=== PATIENT | female | born 1945 | race African-American/Black ===

== ENCOUNTER 2018-07-25 10:09 | Inpatient (IN) | payer MEDICARE ==
[~2018-07-25] VITALS: Ht 160 cm; Wt 105.4 kg
[2018-07-25] MEDS ORDERED: ATEN25TA PO (10:40)
[2018-07-25] MEDS ORDERED: OMEP40CA2 PO (10:40)
[2018-07-25] MEDS ORDERED: VITA200038 PO (10:40)
[2018-07-25] MEDS ORDERED: PRAV40TA2 PO (10:40)
[2018-07-25] MEDS ORDERED: HYDR12.55 PO (10:40)
[2018-07-25] MEDS ORDERED: LOSA-4 PO (10:40)
[2018-07-25] MEDS ORDERED: LABETALOL 100 MG TAB PO ONE (11:00)
--- NOTE | 2018-07-25 11:03 | REP ---
Clinical: Confusion . Findings: Age-related atrophy and microvascular ischemic changes are appreciated. The ventricles and sulci are symmetric. Mack-white differentiation is maintained. There is no evidence for acute intracranial hemorrhage, mass/mass effect, pathology or infarction. No extra-axial fluid collection. Calvarium is intact. Paranasal sinuses and mastoid air cells are clear. Impression: Age related atrophy and microvascular ischemic changes. No acute intracranial hemorrhage, infarction, or mass/mass effect. Electronically Signed by Mina Escudero MD 07/25/2018 10:54 A
[2018-07-25] MEDS: LABETALOL HCL 100 MG/20 ML VIAL IV PRN ×5 (11:09→12:15)
[2018-07-25 11:35] LABS: BASO # 0.1 10^3/uL (0.0-0.2); BASO % 0.9 % (0.0-1.0); EOS # 0.1 10^3/uL (0.0-0.50); EOS % 0.9 % (0.0-3.0); HEMATOCRIT 42.2 % (36.0-47.0); HEMOGLOBIN 13.7 g/dl (12.0-15.5); LYMPH # 2.4 10^3/uL (1.5-4.5); LYMPH % 29.8 % (24.0-44.0); MEAN CORPUSCULAR HGB CONC 32.5 g/dl (32.0-36.5); MEAN CORPUSCULAR VOLUME 89.2 fl (80.0-96.0); MONO # 0.4 10^3/uL (0.0-0.8); MONO % 5.4 % (0.0-5.0); NEUTROPHILS # 4.8 10^3/uL (1.8-7.7); NEUTROPHILS % 61.4 % (36.0-66.0); PLATELET COUNT, AUTOMATED 166 10^3/uL (150-450); RED BLOOD COUNT 4.73 10^6/uL (4.00-5.40); WHITE BLOOD COUNT 7.9 10^3/uL (4.0-10.0)
[2018-07-25] MEDS ORDERED: ONDANSETRON 4MG/2ML VIAL (J2405) IV ONE (11:45)
[2018-07-25 11:47] LABS: INR 0.95; PROTHROMBIN TIME 12.7 SECONDS (12.1-14.4)
[2018-07-25 11:48] LABS: PARTIAL THROMBOPLASTIN TIME 36.3 SECONDS (25.4-37.6)
--- NOTE | 2018-07-25 12:07 | REP ---
Clinical: Altered mental status . Comparison: None . Findings: The mediastinum and cardiac silhouette are stable and within normal limits for portable technique. The lung willoughby are clear without acute consolidation, effusion, or pneumothorax. Skeletal structures are intact. Impression: No acute cardiopulmonary process appreciated. Electronically Signed by Mina Escudero MD 07/25/2018 11:59 A
[2018-07-25 13:01] LABS: BLOOD UREA NITROGEN 19 MG/DL (7-18); CALCIUM LEVEL 9.4 MG/DL (8.8-10.2); CARBON DIOXIDE LEVEL 27 MEQ/L (21-32); CHLORIDE LEVEL 103 MEQ/L (98-107); CPK CREATINE PHOSPHOKINASE 102 U/L (26-192); CREATININE FOR GFR 1.03 MG/DL (0.55-1.30); GLOMERULAR FILTRATION RATE > 60.0 (>39); GLUCOSE, FASTING 123 MG/DL (70-100); MB/CK RELATIVE INDEX 1.96 (< OR =4); SODIUM LEVEL 138 MEQ/L (136-145); TROPONIN I < 0.02 NG/ML (< 0.10)
[2018-07-25] MEDS ORDERED: HYDR50TAB PO (14:34)
[2018-07-25] MEDS ORDERED: OMEP20CA3 PO (14:34)
[2018-07-25] MEDS ORDERED: ACETAMINOPHEN TAB 650MG DOSE (2X325MG) PO ONE (14:45)
[2018-07-25] MEDS ORDERED: hydrALAZINE INJ 20 MG/ML VIAL IV SCH (15:30)
[2018-07-25 15:49] LABS: BASO # 0.1 10^3/uL (0.0-0.2); BASO % 0.6 % (0.0-1.0); HEMATOCRIT 42.5 % (36.0-47.0); HEMOGLOBIN 13.9 g/dl (12.0-15.5); LYMPH # 1.7 10^3/uL (1.5-4.5); LYMPH % 16.3 % (24.0-44.0); MEAN CORPUSCULAR HEMOGLOBIN 28.8 pg (27.0-33.0); MEAN CORPUSCULAR HGB CONC 32.7 g/dl (32.0-36.5); MONO # 0.3 10^3/uL (0.0-0.8); MONO % 3.2 % (0.0-5.0); NEUTROPHILS # 7.9 10^3/uL (1.8-7.7); NEUTROPHILS % 77.9 % (36.0-66.0); PLATELET COUNT, AUTOMATED 174 10^3/uL (150-450); RED BLOOD COUNT 4.83 10^6/uL (4.00-5.40); WHITE BLOOD COUNT 10.2 10^3/uL (4.0-10.0)
[2018-07-25 16:15] LABS: BLOOD UREA NITROGEN 16 MG/DL (7-18); CALCIUM LEVEL 9.3 MG/DL (8.8-10.2); CARBON DIOXIDE LEVEL 27 MEQ/L (21-32); CHLORIDE LEVEL 101 MEQ/L (98-107); CREATININE FOR GFR 1.05 MG/DL (0.55-1.30); GLOMERULAR FILTRATION RATE > 60.0 (>39); GLUCOSE, FASTING 118 MG/DL (70-100); POTASSIUM SERUM 4.1 MEQ/L (3.5-5.1); SODIUM LEVEL 137 MEQ/L (136-145)
--- NOTE | 2018-07-25 17:29 | ECGEPIP ---
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
[2018-07-25 17:45] VITALS: BP 188/82
[2018-07-25 18:00] VITALS: BP 186/81
[2018-07-25 19:40] VITALS: BP 198/90
[2018-07-25] MEDS: MORPHINE 4 MG/ML 1ML VIAL/SYRINGE (J2270) IV PRN (19:44)
[2018-07-25 20:00] VITALS: BP 164/70
[2018-07-25 20:42] VITALS: BP 150/65
--- NOTE | 2018-07-25 22:04 | HPE ---
DATE OF ADMISSION: 07/25/2018 This is a 73-year-old female with a past medical history of hypertension and hyperlipidemia and morbid obesity, presents to the emergency room with intractable headache. She has been having this for the last couple of days. No visual disturbances or tinnitus. No nausea or vomiting. She does have generalized weakness as well associated with the headache. Upon coming to the emergency room, she was found have a blood pressure initially of 250/112. She was given a total of two 40 mg of labetalol IV and then four 20 mg of labetalol and her blood pressure is now 186/90. Upon further history taking, we found out that the patient has been sporadically taking her blood pressure medications. When I asked her why, she could not answer. She denies any chest pain or shortness of breath or palpitations. She will be admitted for further management. PAST MEDICAL HISTORY: 1. Hypertension. 2. Hyperlipidemia. 3. Morbid obesity. ALLERGIES: She has no known drug allergies. FAMILY HISTORY: Noncontributory. SOCIAL HISTORY: The patient denies tobacco, alcohol or illicit drugs. MEDICATIONS: She takes at home: - atenolol 25 mg by mouth daily - cholecalciferol 2000 units by mouth daily - hydrochlorothiazide 50 mg by mouth daily - losartan 100 mg by mouth daily - omeprazole 20 mg by mouth daily - pravastatin 40 mg by mouth daily REVIEW OF SYSTEMS: Negative for all ten major systems except what is mentioned in the history of present illness. PHYSICAL EXAMINATION: VITAL SIGNS: Blood pressure 186/90, heart rate 75 and regular, respiratory rate is 22, temperature is 98, oxygen saturation 98% on room air. Head is atraumatic, normocephalic. Neck is supple with no jugular venous distention (JVD). Lungs clear to auscultation. S1, S2 audible. No murmurs appreciated. Abdomen is soft. Positive bowel sounds. No pedal edema. Skin is intact. Neurologic examination, the patient is awake, alert and oriented times three. LABORATORIES: WBC is 7.9, hemoglobin is 13.7, hematocrit is 42.2, platelets are 168,000. Sodium 138, potassium 4.0, chloride 103, CO2 of 27, anion gap 8, BUN 19, creatinine 1.03, TSH is 1.8, troponin less than 0.02, fasting glucose 123. CK is 102. UA is negative. IMPRESSION: Hypertensive urgency. PLAN: The patient is to be admitted to the progressive care unit (PCU). This is clearly secondary to noncompliance. I will restart all of her blood pressure medications as prescribed and in the meantime we will keep her blood pressure controlled while her home blood pressure medications take effect with hydralazine 10 mg IV every 6 hours as needed. We will continue following her blood pressure trends and her care in the progressive care unit (PCU).
[2018-07-25 22:33] VITALS: BP 143/67
[2018-07-26] VITALS (9 sets, daily range): BP systolic 110–200; BP diastolic 53–100
[2018-07-26] MEDS ORDERED: ACETAMINOPHEN TAB 650MG DOSE (2X325MG) PO ONE (02:45)
[2018-07-26] MEDS: MORPHINE 4 MG/ML 1ML VIAL/SYRINGE (J2270) IV PRN (05:39)
[2018-07-26 06:48] LABS: HEMATOCRIT 39.3 % (36.0-47.0); HEMOGLOBIN 12.9 g/dl (12.0-15.5); MEAN CORPUSCULAR HEMOGLOBIN 28.6 pg (27.0-33.0); MEAN CORPUSCULAR HGB CONC 32.8 g/dl (32.0-36.5); MEAN CORPUSCULAR VOLUME 87.1 fl (80.0-96.0); PLATELET COUNT, AUTOMATED 170 10^3/uL (150-450); RED BLOOD COUNT 4.51 10^6/uL (4.00-5.40); WHITE BLOOD COUNT 11.7 10^3/uL (4.0-10.0)
[2018-07-26 07:27] LABS: ALBUMIN 3.2 GM/DL (3.2-5.2); ALT/SGPT 13 U/L (12-78); BILIRUBIN,TOTAL 0.8 MG/DL (0.2-1.0); BLOOD UREA NITROGEN 22 MG/DL (7-18); CALCIUM LEVEL 8.8 MG/DL (8.8-10.2); CARBON DIOXIDE LEVEL 26 MEQ/L (21-32); CHLORIDE LEVEL 99 MEQ/L (98-107); CREATININE FOR GFR 1.24 MG/DL (0.55-1.30); GLOMERULAR FILTRATION RATE 54.5 (>39); GLUCOSE, FASTING 99 MG/DL (70-100); POTASSIUM SERUM 3.4 MEQ/L (3.5-5.1); SODIUM LEVEL 135 MEQ/L (136-145); TOTAL PROTEIN 7.2 GM/DL (6.4-8.2); TROPONIN I < 0.02 NG/ML (< 0.10)
[2018-07-26] MEDS: OMEPRAZOLE 20 MG CAP PO SCH (08:33)
[2018-07-26] MEDS: VITAMIN D 1,000 INTERNATIONAL UNITS TABLET PO SCH (08:33)
[2018-07-26] MEDS: PRAVASTATIN 20 MG TAB PO SCH (08:34)
[2018-07-26] MEDS ORDERED: LOSARTAN 50 MG TAB PO SCH (09:00)
[2018-07-26] MEDS ORDERED: hydroCHLOROthiazide 25 MG TAB PO SCH (09:00)
[2018-07-26] MEDS ORDERED: ATENOLOL 25 MG TAB PO SCH (09:00)
[2018-07-26] MEDS: ACETAMINOPHEN TAB 650MG DOSE (2X325MG) PO PRN ×2 (13:00→22:29)
[2018-07-26] MEDS: IBUPROFEN 400 MG TAB PO PRN (14:46)
--- NOTE | 2018-07-26 15:24 | IPN ---
DATE: 07/26/2018 SUBJECTIVE: The patient tells me that she is doing so much better. Her blurry vision is improving but not resolved. Her headache is improved but not resolved. She denies fevers, chills, chest pain or shortness of breath. OBJECTIVE: VITAL SIGNS: Temperature 98.7, pulse 75, respiratory rate 18, blood pressure 127/60, oxygen saturation 97% on room air. GENERAL: She is a very pleasant, female who sits up to greet me as I enter the room. She is awake, alert, oriented times three. She is speaking in complete sentences. She does not appear to be in any acute distress. HEENT: Cranial nerves II-XII are grossly intact. She has moist mucous membranes. No elevation in her central venous pressure (CVP). CARDIOVASCULAR: S1, S2, regular RESPIRATORY: Clear. ABDOMINAL: Obese. EXTREMITIES: No clubbing, cyanosis, or edema. LABORATORY STUDIES: WBC 11.7, hemoglobin 12.9, platelet count 170. Chemistry panel: Sodium 135, potassium 3.4, chloride 99, bicarbonate 26, BUN 22, creatinine 1.2. Two sets of cardiac enzymes are negative. TSH was within normal limits. INR is 0.9 and urinalysis (UA) is unremarkable. IMAGING: The patient did have a CT scan of her head that revealed age-related atrophy and microvascular ischemic changes. No acute intracranial hemorrhage, infarction, mass or mass effect. She also did have a chest x-ray which revealed no acute cardiopulmonary process. ASSESSMENT AND PLAN: This is a 69-year-old female who presented with headache and blurry vision found to be in hypertensive urgency. 1. Hypertensive urgency, likely the etiology for her headache and blurry vision. She tells me that she knows that she gets this way whenever she stops taking her medications and when her blood pressure is high. I asked her why she stopped taking her medications. She does have them. She recently moved here from [place] and is set to establish with Yanet Sen within the next 2-3 weeks. However, she felt as though her medications were making her somewhat lethargic and fatigued and, as such, wanted to see how she did without them. She regrets stopping them and informed me that she will be more compliant with them in the future and is now aware that she really needs her medications. We have resumed her previous medications, hydrochlorothiazide and atenolol, 50 mg and 25 mg, respectively, she should receive those this morning. I have moved her losartan to this evening. There is as needed hydralazine on standby which I am optimistic we will not require any further. She has fairly resistant hypertension requiring three agents. Given her advanced age and her obesity, she may have undiagnosed obstructive sleep apnea and could consider outpatient testing versus other evaluations for secondary causes of hypertension. I suspect that she is acutely worse than she has been lately following the holidays and dietary noncompliance with low sodium diet. 2. Hypokalemia, mild. We are restarting her ARB. Followup recheck tomorrow morning. 3. Gastroesophageal reflux disease. She is continued on omeprazole. DISPOSITION: Stable for transfer to medical/surgical floor. Potentially home tomorrow if her symptoms continue to resolve and her blood pressure is controlled on her home agents.
[2018-07-26] MEDS ORDERED: FIORICET TAB PO ONE (17:00)
[2018-07-26] MEDS: FIORICET TAB PO PRN (20:53)
[2018-07-26] MEDS: LOSARTAN 50 MG TAB PO SCH (20:54)
[2018-07-26] MEDS: hydrALAZINE INJ 20 MG/ML VIAL IV PRN (21:40)
[2018-07-26] MEDS ORDERED: **hydrALAZINE** 10 MG TAB PO ONE (23:45)
[2018-07-27] VITALS (15 sets, daily range): BP systolic 130–214; BP diastolic 76–112
[2018-07-27] MEDS: IBUPROFEN 400 MG TAB PO PRN (00:15)
[2018-07-27 00:46] LABS: HEMATOCRIT 43.5 % (36.0-47.0); HEMOGLOBIN 14.4 g/dl (12.0-15.5); MEAN CORPUSCULAR HEMOGLOBIN 29.1 pg (27.0-33.0); MEAN CORPUSCULAR HGB CONC 33.1 g/dl (32.0-36.5); MEAN CORPUSCULAR VOLUME 87.9 fl (80.0-96.0); PLATELET COUNT, AUTOMATED 164 10^3/uL (150-450); RED BLOOD COUNT 4.95 10^6/uL (4.00-5.40); WHITE BLOOD COUNT 9.4 10^3/uL (4.0-10.0)
--- NOTE | 2018-07-27 01:21 | REPVR ---
EXAM: CT Head Without Contrast EXAM DATE/TIME: 07/27/18 (12:46am) CLINICAL HISTORY: 73 year old female with headache. Hypertension. Altered mental status. TECHNIQUE: Axial computed tomography images of the head without contrast. All CT scans at this facility use at least one of these dose optimization techniques: automated exposure control; mA and/or kV adjustment per patient size (includes targeted exams where dose is matched to clinical indication); or iterative reconstruction. COMPARISON: CT HEAD of 07/25/18 FINDINGS: Brain: No acute hemorrhage. No cerebral edema. Age-appropriate atrophic changes are noted. Periventricular and subcortical areas of low attenuation, compatible with small vessel microischemic changes. Ventricles: Normal. No ventriculomegaly. Bones/joints: Normal. No acute fracture. Sinuses: Normal as visualized. No acute sinusitis. Mastoid air cells: Normal as visualized. No mastoid effusion. Soft tissues: Normal. IMPRESSION: No acute intracranial pathology is appreciated. Chronic atrophic and microischemic changes are noted. Electronically signed by: Elba Milligan On 07/27/2018 01:21:31 AM
[2018-07-27 01:24] LABS: CALCIUM LEVEL 9.3 MG/DL (8.8-10.2); CREATININE FOR GFR 1.21 MG/DL (0.55-1.30); GLOMERULAR FILTRATION RATE 56.1 (>39); POTASSIUM SERUM 3.7 MEQ/L (3.5-5.1)
[2018-07-27] MEDS ORDERED: amLODIPine 10 MG TAB PO ONE (02:00)
[2018-07-27] MEDS ORDERED: KETOROLAC 30 MG/ML VIAL (J1885) IV ONE (02:30)
[2018-07-27] MEDS ORDERED: niCARdipine IV 40 MG in APPROPRIATE DILUENT 1 EA IV SCH ×2 (03:30→04:15)
[2018-07-27] MEDS ORDERED: MORPHINE 4 MG/ML 1ML VIAL/SYRINGE (J2270) IV ONE (04:00)
[2018-07-27] MEDS: FIORICET TAB PO PRN ×3 (05:41→22:01)
[2018-07-27 05:56] LABS: HEMATOCRIT 41.6 % (36.0-47.0); HEMOGLOBIN 13.9 g/dl (12.0-15.5); MEAN CORPUSCULAR HEMOGLOBIN 28.5 pg (27.0-33.0); MEAN CORPUSCULAR HGB CONC 33.4 g/dl (32.0-36.5); MEAN CORPUSCULAR VOLUME 85.2 fl (80.0-96.0); PLATELET COUNT, AUTOMATED 171 10^3/uL (150-450); RED BLOOD COUNT 4.88 10^6/uL (4.00-5.40); WHITE BLOOD COUNT 10.1 10^3/uL (4.0-10.0)
[2018-07-27 06:24] LABS: BLOOD UREA NITROGEN 21 MG/DL (7-18); CALCIUM LEVEL 9.2 MG/DL (8.8-10.2); CARBON DIOXIDE LEVEL 28 MEQ/L (21-32); CHLORIDE LEVEL 94 MEQ/L (98-107); GLOMERULAR FILTRATION RATE > 60.0 (>39); GLUCOSE, FASTING 111 MG/DL (70-100); POTASSIUM SERUM 3.8 MEQ/L (3.5-5.1); SODIUM LEVEL 130 MEQ/L (136-145)
[2018-07-27] MEDS ORDERED: hydrALAZINE INJ 20 MG/ML VIAL IV PRN (06:45)
[2018-07-27] MEDS: hydrALAZINE INJ 20 MG/ML VIAL IV PRN (06:54)
[2018-07-27] MEDS ORDERED: SLF 3 ML SYR IV PRN (09:45)
[2018-07-27] MEDS: PRAVASTATIN 20 MG TAB PO SCH (09:47)
[2018-07-27] MEDS: CARVedilol 12.5 MG TAB PO SCH ×2 (09:48→21:59)
[2018-07-27] MEDS: OMEPRAZOLE 20 MG CAP PO SCH (09:48)
[2018-07-27] MEDS: ACETAMINOPHEN TAB 650MG DOSE (2X325MG) PO PRN (09:48)
[2018-07-27] MEDS: VITAMIN D 1,000 INTERNATIONAL UNITS TABLET PO SCH (09:48)
[2018-07-27] MEDS ORDERED: EXCEDRIN MIGRAINE TABLET PO ONE (15:00)
--- NOTE | 2018-07-27 15:50 | IPNPDOC ---
Text Note Date of Service The patient was seen on 07/27/18. NOTE Subjective: Patient was seen and examined at the bedside. Reported this morning that her headache is doing better. Denies any chest pain, shortness of breath or cough. Denies any nausea, vomiting, abdominal pain, constipation or diarrhea. Objective: Vitals (See below) General: Lying in bed, no acute distress, comfortable, AAOx3 HEENT: NC, AT CVS: RRR, +S1S2 Lungs: Fair air entry b/l, -w/r/r Abdomen: Soft, ND, NT Extremities: - Edema, - Calf tenderness Assessment and plan: s/p Hypertensive urgency - likely 2/2 non-compliance with medications - Initially presented with Headache and blurred vision; has had fewer headaches - BP better controlled - c/w Carvedilol and Losartan; s/p Hydralazine, Atenolol and HCTZ Hyponatremia (mild) - possibly 2/2 HCTZ - Has been discontinued Non-compliance - Advised compliance - Will follow with Dr. Yanick Sen as an outpatient s/p Hypokalemia DLP - c/w Pravastatin GERD - c/w Omeprazole DVT prophylaxis - c/w SCDs Disposition: - Adjusted BP meds; will continue to monitor VS,Fishbone, I+O VS, Fishbone, I+O Laboratory Tests 07/27/18 00:41 Red Blood Count 4.95, Mean Corpuscular Volume 87.9, Mean Corpuscular Hemoglobin 29.1, Mean Corpuscular Hemoglobin Concent 33.1, Red Cell Distribution Width 15.3 H, Calcium Level 9.3 07/27/18 05:24 Red Blood Count 4.88, Mean Corpuscular Volume 85.2, Mean Corpuscular Hemoglobin 28.5, Mean Corpuscular Hemoglobin Concent 33.4, Red Cell Distribution Width 14.8 H, Calcium Level 9.2 Vital Signs Date Time Temp Pulse Resp B/P (MAP) Pulse Ox O2 Delivery O2 Flow Rate FiO2 07/27/18 12:11 18 96 Room Air 07/27/18 12:00 98.2 71 134/76 (95) I&O- Last 24 Hours up to 6 AM 07/27/18 06:00 Intake Total 480 ml Output Total 1525 ml Balance -1045 ml OSBALDO BOUCHER MD Jul 27, 2018 15:50
[2018-07-27] MEDS: SLF 3 ML SYR IV SCH ×2 (16:24→22:00)
[2018-07-27] MEDS: LOSARTAN 50 MG TAB PO SCH (22:02)
[2018-07-28 00:01] VITALS: BP 130/76
[2018-07-28 04:43] VITALS: BP 132/78
[2018-07-28 05:18] LABS: HEMATOCRIT 40.5 % (36.0-47.0); HEMOGLOBIN 13.7 g/dl (12.0-15.5); MEAN CORPUSCULAR HEMOGLOBIN 28.8 pg (27.0-33.0); MEAN CORPUSCULAR HGB CONC 33.8 g/dl (32.0-36.5); MEAN CORPUSCULAR VOLUME 85.1 fl (80.0-96.0); PLATELET COUNT, AUTOMATED 173 10^3/uL (150-450); RED BLOOD COUNT 4.76 10^6/uL (4.00-5.40); WHITE BLOOD COUNT 10.8 10^3/uL (4.0-10.0)
[2018-07-28 05:43] LABS: CALCIUM LEVEL 8.9 MG/DL (8.8-10.2); CREATININE FOR GFR 1.16 MG/DL (0.55-1.30); GLOMERULAR FILTRATION RATE 58.9 (>39); POTASSIUM SERUM 3.6 MEQ/L (3.5-5.1)
[2018-07-28] MEDS: SLF 3 ML SYR IV SCH ×3 (06:00→22:00)
[2018-07-28 08:00] VITALS: BP 118/64
[2018-07-28] MEDS: PRAVASTATIN 20 MG TAB PO SCH (08:36)
[2018-07-28] MEDS: VITAMIN D 1,000 INTERNATIONAL UNITS TABLET PO SCH (08:37)
[2018-07-28] MEDS: CARVedilol 12.5 MG TAB PO SCH ×2 (08:37→20:46)
[2018-07-28] MEDS: OMEPRAZOLE 20 MG CAP PO SCH (08:37)
[2018-07-28] MEDS: FIORICET TAB PO PRN ×3 (08:45→21:00)
[2018-07-28] MEDS ORDERED: BUTA-198 PO ×2 (11:17→12:33)
[2018-07-28] MEDS ORDERED: CARV12.5 PO ×2 (11:17→12:33)
[2018-07-28 12:00] VITALS: BP 112/68
--- NOTE | 2018-07-28 12:47 | DS.PDOC ---
Discharge Summary General Date of Admission Jul 25, 2018 at 15:19 Date of Discharge 07/28/2018 Discharge Summary PROCEDURES PERFORMED DURING STAY: [None]. ADMITTING DIAGNOSES / DISCHARGE DIAGNOSES: s/p Hypertensive urgency - likely 2/2 non-compliance with medications Headache - possibly 2/2 migraine headaches Hyponatremia (mild) - possibly 2/2 HCTZ Non-compliance s/p Hypokalemia DLP GERD DVT prophylaxis COMPLICATIONS/CHIEF COMPLAINT: Hypertensive Urgency. HISTORY OF PRESENT ILLNESS: Patient is a 73-year-old -[place] female with a PMHx of HTN, DLP and morbid obesity who presented to the ER with complaints of headache and blurred vision. Patient was found to have a systolic blood pressure of 250s. Patient reported that she was noncompliant with her medications because he reportedly made her fatigued. Blood pressure medications were adjusted while inpatient. She was admitted to the hospitalist service for further evaluation and treatment. HOSPITAL COURSE: s/p Hypertensive urgency - likely 2/2 non-compliance with medications - Initially presented with Headache and blurred vision; has had resolution of blurred vision, headaches have improved - BP better controlled - c/w Carvedilol and Losartan; s/p Hydralazine, Atenolol and HCTZ Headache - possibly 2/2 migraine headaches - Reports some improvement - No focal neurologic deficit noted - CT head 07/27: No acute intracranial pathology is appreciated. Chronic atrophic and microischemic changes are noted. - c/w Fioricet - Patient has refused to receive an MRI; advised risks and benefits - patient verbalized understanding; continue to refuse even after offered sedatives - Will provide outpatient referral to neurology Hyponatremia (mild) - possibly 2/2 HCTZ - Has been discontinued Non-compliance - Advised compliance - Will follow with Dr. Yanick Sen as an outpatient s/p Hypokalemia DLP - c/w Pravastatin GERD - c/w Omeprazole DVT prophylaxis - c/w SCDs DISCHARGE MEDICATIONS: Please see below. ALLERGIES: Please see below. PHYSICAL EXAMINATION ON DISCHARGE: Vitals (See below) General: Lying in bed, no acute distress, comfortable, AAOx3 HEENT: NC, AT CVS: RRR, +S1S2 Lungs: Fair air entry b/l, no evidence of wheezing, rhonchi or rales Abdomen: Soft, nondistended, without tenderness Extremities: - Edema, - Calf tenderness LABORATORY DATA: Please see below. ACTIVITY: [As tolerated]. DISCHARGE PLAN: Follow-up with Dr. Yanet Sen, and Dr. Shelton within 7 days Remained compliant with treatment plan and medications Return to the ER if you experience any problems DISPOSITION: Home with services DISCHARGE CONDITION: [Stable]. TIME SPENT ON DISCHARGE: Greater than [35] minutes. Vital Signs/I&Os Vital Signs Date Time Temp Pulse Resp B/P (MAP) Pulse Ox O2 Delivery O2 Flow Rate FiO2 07/28/18 12:00 97.6 63 18 112/68 (83) 100 Room Air I&O- Last 24 Hours up to 6 AM 07/28/18 06:00 Intake Total 1355 ml Output Total 200 ml Balance 1155 ml Laboratory Data Labs 24H Laboratory Tests 2 07/28/18 04:55: Nucleated Red Blood Cells % (auto) 0.0, Anion Gap 7L, Glomerular Filtration Rate 58.9, Blood Urea Nitrogen 21H, Creatinine 1.16, Sodium Level 129L, Potassium Level 3.6, Chloride Level 93L, Carbon Dioxide Level 29, Calcium Level 8.9 CBC/BMP Laboratory Tests 07/28/18 04:55 Red Blood Count 4.76, Mean Corpuscular Volume 85.1, Mean Corpuscular Hemoglobin 28.8, Mean Corpuscular Hemoglobin Concent 33.8, Red Cell Distribution Width 14.5, Calcium Level 8.9 Discharge Medications Scheduled Carvedilol (Carvedilol) 12.5 Mg Tab, 12.5 MG PO BID Cholecalciferol (Vitamin D-3) 2,000 Unit Tab, 2,000 UNITS PO DAILY, (Reported) Losartan Potassium (Losartan Potassium) 100 Mg Tab, 100 MG PO DAILY, (Reported) Omeprazole (Omeprazole) 20 Mg Cap, 20 MG PO DAILY, (Reported) Pravastatin Sod (Pravastatin Sodium) 40 Mg Tab, 40 MG PO DAILY, (Reported) Scheduled PRN (Butalbital/Acetaminophen/ 50-325-40 mg) 1 Tab Tab, 1 EA PO Q6HP PRN for HEADACHE Allergies Coded Allergies: No Known Allergies (Unverified , 07/25/18) OSBALDO BOUCHER MD Jul 28, 2018 12:47
[2018-07-28] MEDS: ACETAMINOPHEN TAB 650MG DOSE (2X325MG) PO PRN (12:56)
[2018-07-28 16:00] VITALS: BP 152/92
[2018-07-28] MEDS: CYCLOBENZAPRINE 5MG TABLET PO SCH ×2 (17:02→22:27)
[2018-07-28] MEDS: NORTRIPTYLINE 25 MG CAP PO SCH (17:59)
[2018-07-28 20:00] VITALS: BP 148/68
[2018-07-28] MEDS: LOSARTAN 50 MG TAB PO SCH (20:46)
[2018-07-29] VITALS (7 sets, daily range): BP systolic 98–122; BP diastolic 56–73
[2018-07-29 04:50] LABS: HEMOGLOBIN 13.4 g/dl (12.0-15.5); MEAN CORPUSCULAR HEMOGLOBIN 28.6 pg (27.0-33.0); MEAN CORPUSCULAR HGB CONC 33.5 g/dl (32.0-36.5); MEAN CORPUSCULAR VOLUME 85.3 fl (80.0-96.0); PLATELET COUNT, AUTOMATED 175 10^3/uL (150-450); RED BLOOD COUNT 4.69 10^6/uL (4.00-5.40); WHITE BLOOD COUNT 8.1 10^3/uL (4.0-10.0)
[2018-07-29] MEDS: SLF 3 ML SYR IV SCH ×4 (04:57→21:09)
[2018-07-29] MEDS: CYCLOBENZAPRINE 5MG TABLET PO SCH ×3 (05:06→21:07)
[2018-07-29 05:11] LABS: CALCIUM LEVEL 8.5 MG/DL (8.8-10.2); CREATININE FOR GFR 1.25 MG/DL (0.55-1.30); POTASSIUM SERUM 3.4 MEQ/L (3.5-5.1)
[2018-07-29] MEDS ORDERED: POTASSIUM CHLORIDE 10 MEQ SR TABLET PO ONE (07:30)
[2018-07-29] MEDS: CARVedilol 12.5 MG TAB PO SCH (09:00)
[2018-07-29] MEDS: OMEPRAZOLE 20 MG CAP PO SCH (09:15)
[2018-07-29] MEDS: VITAMIN D 1,000 INTERNATIONAL UNITS TABLET PO SCH (09:16)
[2018-07-29] MEDS: ACETAMINOPHEN TAB 650MG DOSE (2X325MG) PO PRN ×2 (09:17→16:34)
[2018-07-29] MEDS: PRAVASTATIN 20 MG TAB PO SCH (09:17)
[2018-07-29] MEDS ORDERED: NORT25CA2 PO (09:50)
[2018-07-29] MEDS ORDERED: CARV6.25 PO (09:50)
[2018-07-29] MEDS ORDERED: CYCL5TAB PO (09:50)
[2018-07-29] MEDS: FIORICET TAB PO PRN (13:15)
--- NOTE | 2018-07-29 16:11 | IPNPDOC ---
Text Note Date of Service The patient was seen on 07/29/18. NOTE Subjective: Patient was seen and examined at the bedside. Patient notes that her headache is doing much better. She denies any chest pain, difficulty breathing, nausea, vomiting, abdominal pain, constipation or diarrhea. Patient denies any discomfort with urination. . Currently, she does not experience any visual problems. Objective: Vitals (See below) General: Lying in bed, no acute distress, comfortable, AAOx3 HEENT: NC, AT CVS: RRR, +S1S2 Lungs: Fair air entry b/l, auscultation is without any wheezing, rales or rhonchi Abdomen: Soft, abdomen is non-distended without tenderness Extremities: No lower extremity edema, - Calf tenderness Assessment and plan: s/p Hypertensive urgency - likely 2/2 non-compliance with medications - Initially presented with Headache and blurred vision; has had fewer headaches - BP better controlled; on lower limits of normal - s/p Hydralazine, Atenolol and HCTZ - c/w Carvedilol and Losartan; will reduce dose of carvedilol Headache - possibly 2/2 migraine headaches - Reports that her headache is doing much better this morning - No focal neurologic deficit noted - CT head 07/27: No acute intracranial pathology is appreciated. Chronic atrophic and microischemic changes are noted. - Patient has refused to receive an MRI; advised risks and benefits - patient ve rbalized understanding; continue to refuse even after offered sedatives - Will DC Fioricet - c/w Nortriptyline and Baclofen - Neurology on consultation; appreciate their input Hyponatremia (mild) - possibly 2/2 HCTZ - HCTZ been discontinued - Continues to improve Non-compliance - Advised compliance - Will follow with Dr. Yanick Sen as an outpatient s/p Hypokalemia DLP - c/w Pravastatin GERD - c/w Omeprazole DVT prophylaxis - c/w SCDs Disposition: - Will adjust BP meds again - Anticipate DC tomorrow VS,Fishbone, I+O VS, Fishbone, I+O Laboratory Tests 07/29/18 04:28 Red Blood Count 4.69, Mean Corpuscular Volume 85.3, Mean Corpuscular Hemoglobin 28.6, Mean Corpuscular Hemoglobin Concent 33.5, Red Cell Distribution Width 14.3, Calcium Level 8.5 L Vital Signs Date Time Temp Pulse Resp B/P (MAP) Pulse Ox O2 Delivery O2 Flow Rate FiO2 07/29/18 13:15 18 07/29/18 12:00 98.1 74 120/70 (87) 100 Room Air I&O- Last 24 Hours up to 6 AM 07/29/18 06:00 Intake Total 1260 ml Output Total 650 ml Balance 610 ml OSBALDO BOUCHER MD Jul 29, 2018 16:11
[2018-07-29] MEDS: NORTRIPTYLINE 25 MG CAP PO SCH (21:06)
[2018-07-29] MEDS: LOSARTAN 50 MG TAB PO SCH (21:07)
[2018-07-29] MEDS: CARVedilol 6.25 MG TAB PO SCH (21:07)
[2018-07-30 03:22] VITALS: BP 120/62
[2018-07-30] MEDS: FIORICET TAB PO PRN ×2 (03:26→08:59)
[2018-07-30 04:00] VITALS: BP 122/69
[2018-07-30] MEDS: SLF 3 ML SYR IV SCH ×3 (04:51→22:00)
[2018-07-30] MEDS: CYCLOBENZAPRINE 5MG TABLET PO SCH ×3 (05:05→21:09)
[2018-07-30 05:15] LABS: HEMATOCRIT 39.2 % (36.0-47.0); MEAN CORPUSCULAR HEMOGLOBIN 28.8 pg (27.0-33.0); MEAN CORPUSCULAR HGB CONC 33.2 g/dl (32.0-36.5); MEAN CORPUSCULAR VOLUME 86.9 fl (80.0-96.0); PLATELET COUNT, AUTOMATED 171 10^3/uL (150-450); RED BLOOD COUNT 4.51 10^6/uL (4.00-5.40); WHITE BLOOD COUNT 7.4 10^3/uL (4.0-10.0)
[2018-07-30 05:41] LABS: CALCIUM LEVEL 8.9 MG/DL (8.8-10.2); CREATININE FOR GFR 1.41 MG/DL (0.55-1.30); POTASSIUM SERUM 3.7 MEQ/L (3.5-5.1)
[2018-07-30] MEDS: ACETAMINOPHEN TAB 650MG DOSE (2X325MG) PO PRN (05:58)
[2018-07-30 08:00] VITALS: BP 110/66
[2018-07-30] MEDS ORDERED: NS 1,000 ML IV SCH (08:00)
--- NOTE | 2018-07-30 08:51 | CR ---
DATE OF CONSULTATION: 07/30/2018 REASON FOR CONSULTATION: Persistent headache. HISTORY OF PRESENT ILLNESS: Oralia Terrell is a 73-year-old female with a past medical history significant for hypertension, hyperlipidemia, morbid obesity who has not been very compliant with taking her medications, presented to [facility] with systolic blood pressures greater than 250/112. The patient was treated with initially antihypertensive drips. Her blood pressure gradually successfully returned back to normal. The patient throughout the hospital stay complained of a headache. She describes sharp pain in the occipital region of her head, left greater than right. It is inconsistent with occipital neuralgia. The patient is agreeable to go ahead and start nortriptyline for management of this pain. She states that she has been having on and off pains in the back of her head for many years; however not quite as intense as this time. She has chronic neck pain. REVIEW OF SYSTEMS: 14-point review of systems obtained and is negative except as per history of present illness. ALLERGIES: No known drug allergies. PAST MEDICAL HISTORY: Hypertension, hyperlipidemia, morbid obesity, medical noncompliance. FAMILY HISTORY: Noncontributory. SOCIAL HISTORY: The patient denies use of tobacco, alcohol or illicit drugs. MEDICATIONS AT HOME: - atenolol - cholecalciferol - hydrochlorothiazide - losartan - omeprazole - pravastatin Head CT completed 07/27/2018 showed small-vessel ischemic disease and atrophy, age-related. PHYSICAL EXAMINATION: Blood pressure is 152/92, pulse rate 65, respiratory rate is 18, temperature is 97.6 degrees Fahrenheit, oxygenation 100 percent on room air. The patient is awake, alert, oriented to person, place and time. Speech, language, comprehension and repetition are intact. Pupils are 3 mm round, reactive to light. Extraocular movements are intact in all directions without nystagmus. Sensation V1, V2-V3 is intact to light touch. No facial asymmetry to activation. Palate elevates symmetrically. Tongue is midline. No weakness of sternocleidomastoids bilaterally. Hearing is subjectively equal to finger rub. There is no pronator drift. Strength is 5/5, including bilateral deltoids, biceps, triceps, handgrip, iliopsoas, quadriceps and tibialis. Deep tendon reflexes are 2's throughout but reduced at the lower extremities. Sensory is intact to light touch in all four extremities. Coordination: No ataxia, dysmetria. Gait deferred. 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 PLAN: 1. Start nortriptyline 25 mg by mouth at night. The patient is to follow up in the [facility] Neurology office upon discharge. History obtained by both the patient and the patient's daughter.
[2018-07-30] MEDS: VITAMIN D 1,000 INTERNATIONAL UNITS TABLET PO SCH (08:58)
[2018-07-30] MEDS: PRAVASTATIN 20 MG TAB PO SCH (08:58)
[2018-07-30] MEDS: OMEPRAZOLE 20 MG CAP PO SCH (08:59)
[2018-07-30] MEDS: CARVedilol 6.25 MG TAB PO SCH ×2 (08:59→21:10)
[2018-07-30 12:00] VITALS: BP 116/78
[2018-07-30] MEDS ORDERED: LORazepam 2 MG/ML VIAL (J2060) IV ONE (12:00)
--- NOTE | 2018-07-30 14:15 | REP ---
MR BRAIN WITHOUT CONTRAST: HISTORY: Headache. COMPARISON: CT 07/27/2018 Areas of increased signal intensity on T2-weighted images are present in the periventricular and subcortical white matter. This represents small vessel ischemic disease. There is no intraparenchymal hemorrhage, infarct , mass or midline shift. The ventricular system is normal in appearance. The cortical sulci are dilated consistent with minimal volume loss. There is no extracerebral collection. The sinuses are clear. IMPRESSION: 1. Small vessel ischemic disease. 2. Minimal volume loss. Electronically Signed by Aleks Ziegler MD 07/30/2018 02:19 P
[2018-07-30 16:00] VITALS: BP 144/82
--- NOTE | 2018-07-30 17:32 | IPNPDOC ---
Text Note Date of Service The patient was seen on 07/30/18. NOTE Subjective: Patient was seen and examined at the bedside. Patient denies any CP, SOB or palpitations. Notes that her headache is still occurring intermittently. Denies any abdominal pain, constipation, diarrhea. Objective: Vitals (See below) General: Lying in bed, no acute distress, comfortable, AAOx3 HEENT: NC, AT CVS: RRR, +S1S2 Lungs: Fair air entry b/l, -w/r/r Abdomen: Soft, ND, without tenderness Extremities: LE without edema, - Calf tenderness Assessment and plan: s/p Hypertensive urgency - likely 2/2 non-compliance with medications - Initially presented with Headache and blurred vision; has had fewer headaches - BP better controlled; on lower limits of normal - s/p Hydralazine, Atenolol and HCTZ - c/w Adjusted dose of carvedilol and Losartan; will reduce dose of Losartan Headache - possibly 2/2 migraine headaches - Reports that her headaches are still intermittent - No focal neurologic deficit noted - CT head 07/27: No acute intracranial pathology is appreciated. Chronic atrophic and microischemic changes are noted. - MRI head 07/30: Small vessel ischemic disease. Minimal volume loss. - s/p Fioricet - c/w Nortriptyline and Baclofen - Neurology on consultation; appreciate their input Elevated Creatinine - possibly 2/2 medications - Will start IV fluid hydration Hyponatremia (mild) - possibly 2/2 HCTZ - HCTZ been discontinued - Continues to improve Non-compliance - Advised compliance - Will follow with Dr. Yanick Sen as an outpatient s/p Hypokalemia DLP - c/w Pravastatin GERD - c/w Omeprazole DVT prophylaxis - c/w SCDs Disposition: - Will adjust BP medications again - Anticipate DC tomorrow VS,Fishbone, I+O VS, Fishbone, I+O Laboratory Tests 07/30/18 05:02 Red Blood Count 4.51, Mean Corpuscular Volume 86.9, Mean Corpuscular Hemoglobin 28.8, Mean Corpuscular Hemoglobin Concent 33.2, Red Cell Distribution Width 14.9 H, Calcium Level 8.9 Vital Signs Date Time Temp Pulse Resp B/P (MAP) Pulse Ox O2 Delivery O2 Flow Rate FiO2 07/30/18 12:00 97.3 78 18 116/78 (91) 100 Room Air I&O- Last 24 Hours up to 6 AM 07/30/18 05:59 Intake Total 1160 ml Output Total 750 ml Balance 410 ml OSBALDO BOUCHER MD Jul 30, 2018 17:32
[2018-07-30 20:00] VITALS: BP 148/78
[2018-07-30] MEDS: NS 1,000 ML IV SCH (20:30)
[2018-07-30] MEDS ORDERED: LOSARTAN 50 MG TAB PO SCH (21:00)
[2018-07-30] MEDS: NORTRIPTYLINE 25 MG CAP PO SCH (21:10)
[2018-07-31] VITALS: BP 154/84
[2018-07-31 04:00] VITALS: BP 160/82
[2018-07-31 05:48] LABS: HEMATOCRIT 38.8 % (36.0-47.0); HEMOGLOBIN 12.6 g/dl (12.0-15.5); MEAN CORPUSCULAR HEMOGLOBIN 28.8 pg (27.0-33.0); MEAN CORPUSCULAR HGB CONC 32.5 g/dl (32.0-36.5); MEAN CORPUSCULAR VOLUME 88.6 fl (80.0-96.0); PLATELET COUNT, AUTOMATED 174 10^3/uL (150-450); RED BLOOD COUNT 4.38 10^6/uL (4.00-5.40); WHITE BLOOD COUNT 7.3 10^3/uL (4.0-10.0)
[2018-07-31 06:00] LABS: BLOOD UREA NITROGEN 26 MG/DL (7-18); CALCIUM LEVEL 8.7 MG/DL (8.8-10.2); CARBON DIOXIDE LEVEL 27 MEQ/L (21-32); CHLORIDE LEVEL 106 MEQ/L (98-107); GLOMERULAR FILTRATION RATE > 60.0 (>39); GLUCOSE, FASTING 96 MG/DL (70-100); POTASSIUM SERUM 3.9 MEQ/L (3.5-5.1); SODIUM LEVEL 140 MEQ/L (136-145)
[2018-07-31] MEDS: SLF 3 ML SYR IV SCH ×2 (06:00→14:00)
[2018-07-31] MEDS: CYCLOBENZAPRINE 5MG TABLET PO SCH (06:04)
[2018-07-31 07:37] VITALS: BP 130/78
[2018-07-31] MEDS: NS 1,000 ML IV SCH (09:00)
[2018-07-31] MEDS: OMEPRAZOLE 20 MG CAP PO SCH (09:22)
[2018-07-31 09:23] VITALS: BP 130/78
[2018-07-31] MEDS: CARVedilol 6.25 MG TAB PO SCH (09:23)
[2018-07-31] MEDS: PRAVASTATIN 20 MG TAB PO SCH (09:23)
[2018-07-31] MEDS: VITAMIN D 1,000 INTERNATIONAL UNITS TABLET PO SCH (09:23)
[2018-07-31 11:29] VITALS: BP 128/84
[2018-07-31] MEDS ORDERED: LOSA50TA73 PO (11:41)
--- NOTE | 2018-07-31 16:24 | DS.PDOC ---
Discharge Summary General Date of Admission Jul 25, 2018 at 15:19 Date of Discharge 07/31/2018 Discharge Summary PROCEDURES PERFORMED DURING STAY: [None]. ADMITTING DIAGNOSES / DISCHARGE DIAGNOSES: s/p Hypertensive urgency - likely 2/2 non-compliance with medications Headache - possibly 2/2 occipital neuralgia Elevated Creatinine - possibly 2/2 medications Hyponatremia (mild) - possibly 2/2 HCTZ Non-compliance s/p Hypokalemia DLP GERD DVT prophylaxis COMPLICATIONS/CHIEF COMPLAINT: Headache HISTORY OF PRESENT ILLNESS: Patient is a 73-year-old -Irish female with a PMHx of HTN, DLP and mo rbid obesity who presented to the ER with complaints of headache and blurred vision. Patient was found to have a systolic blood pressure of 250s. Patient reported that she was noncompliant with her medications because he reportedly made her fatigued. Blood pressure medications were adjusted while inpatient. She was admitted to the hospitalist service for further evaluation and treatment. HOSPITAL COURSE: s/p Hypertensive urgency - likely 2/2 non-compliance with medications - Initially presented with Headache and blurred vision; has resolved - BP better controlled from admission - s/p Hydralazine, Atenolol and HCTZ - c/w Carvedilol and Losartan at adjusted doses Headache - possibly 2/2 occipital neuralgia - Reports that her headaches are much improved - No focal neurologic deficit noted - CT head 07/27: No acute intracranial pathology is appreciated. Chronic atrophic and microischemic changes are noted. - MRI head 07/30: Small vessel ischemic disease. Minimal volume loss. - s/p Fioricet - c/w Nortriptyline and Baclofen - Neurology on consultation; appreciate their input; will have outpatient follow-up s/p Elevated Creatinine - possibly 2/2 medications - s/p IV fluid hydration s/p Hyponatremia (mild) - possibly 2/2 HCTZ - HCTZ been discontinued - Continues to improve Non-compliance - Advised compliance - Will follow with Dr. Yanick Sen as an outpatient s/p Hypokalemia DLP - c/w Pravastatin GERD - c/w Omeprazole DVT prophylaxis - c/w SCDs DISCHARGE MEDICATIONS: Please see below. ALLERGIES: Please see below. PHYSICAL EXAMINATION ON DISCHARGE: Vitals (See below) General: Lying in bed, no acute distress, comfortable, AAOx3 HEENT: NC, AT CVS: RRR, +S1S2 Lungs: Fair air entry b/l, -w/r/r Abdomen: Soft, ND, without tenderness Extremities: LE without edema, - Calf tenderness LABORATORY DATA: Please see below. ACTIVITY: [As tolerated]. DISCHARGE PLAN: Follow-up with Dr. Yanet Sen, and Dr. Shelton within 7 days Remained compliant with treatment plan and medications Return to the ER if you experience any problems DISPOSITION: Home with services DISCHARGE CONDITION: [Stable]. TIME SPENT ON DISCHARGE: Greater than [35] minutes. Vital Signs/I&Os Vital Signs Date Time Temp Pulse Resp B/P (MAP) Pulse Ox O2 Delivery O2 Flow Rate FiO2 07/31/18 11:29 97.4 81 18 128/84 (99) 99 Room Air I&O- Last 24 Hours up to 6 AM 07/31/18 06:00 Intake Total 2380 ml Output Total 1450 ml Balance 930 ml Laboratory Data Labs 24H Laboratory Tests 2 07/31/18 04:56: Nucleated Red Blood Cells % (auto) 0.0, Anion Gap 7L, Glomerular Filtration Rate > 60.0, Blood Urea Nitrogen 26H, Creatinine 1.10, Sodium Level 140#, Potassium Level 3.9, Chloride Level 106, Carbon Dioxide Level 27, Calcium Level 8.7L CBC/BMP Laboratory Tests 07/31/18 04:56 Red Blood Count 4.38, Mean Corpuscular Volume 88.6, Mean Corpuscular Hemoglobin 28.8, Mean Corpuscular Hemoglobin Concent 32.5, Red Cell Distribution Width 15.3 H, Calcium Level 8.7 L Discharge Medications Scheduled Carvedilol (Carvedilol) 6.25 Mg Tab, 6.25 MG PO BID Cholecalciferol (Vitamin D-3) 2,000 Unit Tab, 2,000 UNITS PO DAILY, (Reported) Cyclobenzaprine HCl (Cyclobenzaprine HCl) 5 Mg Tab, 5 MG PO Q8H Losartan Potassium (Losartan Potassium) 50 Mg Tab, 1 TAB PO QHS Nortriptyline HCl (Nortriptyline HCl) 25 Mg Cap, 25 MG PO QHS Omeprazole (Omeprazole) 20 Mg Cap, 20 MG PO DAILY, (Reported) Pravastatin Sod (Pravastatin Sodium) 40 Mg Tab, 40 MG PO DAILY, (Reported) Allergies Coded Allergies: No Known Allergies (Unverified , 07/25/18) OSBALDO BOUCHER MD Jul 31, 2018 16:24
[2018-08-01] MEDS ORDERED: PRAV40TA2 PO (10:57)
== END 2018-07-31 14:36 | disposition home or self-care (01) | DRG 103 ==
LOC: M ED 10:09 → M ED INP 15:19 → M ICU 17:32 → M PCU 22:16 → M MS4PR 07-26 23:05 → M PCU 07-27 03:31
PROVIDERS: ADMIT Internal Medicine; ATTEND Internal Medicine
DX: G43.909 Migraine, unspecified, not intractable, without status migrainosus (principal); E87.1 Hypo-osmolality and hyponatremia; Z68.41 Body mass index [BMI] 40.0-44.9, adult; E66.01 Morbid (severe) obesity due to excess calories; I16.0 Hypertensive urgency; K21.9 Gastro-esophageal reflux disease without esophagitis; E87.6 Hypokalemia; Z91.19 Patient's noncompliance with other medical treatment and regimen; Z79.899 Other long term (current) drug therapy

== ENCOUNTER → 2018-09-21 | Outpatient (CLI) | payer MEDICARE, OTHER ==
[~2018-09-21] MED LIST: ATEN25TA PO; BUTA-198 PO; CARV12.5 PO; CARV6.25 PO; CYCL5TAB PO; HYDR12.55 PO; HYDR50TAB PO; LOSA100T50 PO; LOSA50TA88 PO; NORT25CA2 PO; OMEP20CA3 PO; OMEP40CA2 PO; PRAV40TA2 PO; VITA200038 PO
[2018-09-21 15:03] LABS: BLOOD UREA NITROGEN 16 MG/DL (7-18); CALCIUM LEVEL 9.3 MG/DL (8.8-10.2); CARBON DIOXIDE LEVEL 29 MEQ/L (21-32); CHLORIDE LEVEL 103 MEQ/L (98-107); CREATININE FOR GFR 1.04 MG/DL (0.55-1.30); GLOMERULAR FILTRATION RATE > 60.0 (>39); GLUCOSE, FASTING 106 MG/DL (70-100); POTASSIUM SERUM 4.4 MEQ/L (3.5-5.1); SODIUM LEVEL 139 MEQ/L (136-145)
[2018-09-21 16:54] LABS: HEMOGLOBIN A1c 6.3 %
== END ==
LOC: M LAB 13:59
PROVIDERS: ATTEND Family Medicine
DX: R73.03 Prediabetes (principal); I10 Essential (primary) hypertension

== ENCOUNTER → 2018-10-26 | Outpatient (REF) | payer OTHER ==
[2018-10-26 17:38] LABS: CALCIUM LEVEL 9.3 MG/DL (8.8-10.2); CREATININE FOR GFR 1.23 MG/DL (0.55-1.30); GLOMERULAR FILTRATION RATE 55.1 (>39)
== END ==
LOC: M SFHCPLAZ 14:49
PROVIDERS: ATTEND Family Medicine
DX: I10 Essential (primary) hypertension (principal)
CPT/HCPCS: 36415; 80048; G0463

== ENCOUNTER → 2018-11-29 | Outpatient (REF) | payer OTHER ==
[2018-11-29 19:04] LABS: BLOOD UREA NITROGEN 12 MG/DL (7-18); CARBON DIOXIDE LEVEL 29 MEQ/L (21-32); CHLORIDE LEVEL 100 MEQ/L (98-107); CREATININE FOR GFR 1.12 MG/DL (0.55-1.30); GLOMERULAR FILTRATION RATE > 60.0 (>39); GLUCOSE, FASTING 87 MG/DL (70-100); POTASSIUM SERUM 4.2 MEQ/L (3.5-5.1); SODIUM LEVEL 135 MEQ/L (136-145)
== END ==
LOC: M SFHCPLAZ 15:05
PROVIDERS: ATTEND Family Medicine
DX: I10 Essential (primary) hypertension (principal)

== ENCOUNTER → 2018-12-10 | Outpatient (CLI) | payer OTHER ==
--- NOTE | 2018-12-20 00:37 | ECWPNPC ---
PATIENT NAME: JOANNE DAI : 1945 GENDER: FEMALE VISIT DATE: 12/10/2018 DISCHARGE DATE: 12/10/18 1403 VISIT LOCKED DATE TIME: PHYSICIAN: CADY ZAVALETA MD RESOURCE: CADY ZAVALETA MD REASON FOR APPOINTMENT 1. DDD, CHRONIC BACK KNEE PAIN HISTORY OF PRESENT ILLNESS NEW PATIENT CONSULT: WHEN DID YOUR PAIN FIRST START? . BRIEFLY DESCRIBE HOW YOUR PAIN STARTED? . HOW DOES YOUR PAIN CHANGE WITH TIME? . DOES YOUR PAIN AWAKEN YOU FROM SLEEP? . HOW MANY HOURS OF SLEEP DO YOU NORMALLY GET? . ANY DIAGNOSTIC TESTING? . FACILITY WHERE TESTS WERE DONE? ____. PAIN TREATMENT TREATMENT YES CANCER HAVE YOU EVER HAD ANY TYPE OF CANCER?NO NO. PAIN SCREENING: PATIENT HAS A COMPLAINT OF ACUTE OR CHRONIC PAIN :YES 73 YEAR OLD FEMALE PATIENT WITH A HISTORY OF CHRONIC BACK AND RIGHT KNEE PAIN. THE PATIENT DESCRIBES THE PAIN ACHING, TENDER, AND CONTINUOUS WITH A PAIN SCORE OF 8-10/10 DEPENDING ON PHYSICAL ACTIVITY. THE PATIENT SAYS THAT SHE HAS HAD THIS PAIN FOR MANY YEARS AND IT HAS WORSENED OVER TIME. THE PATIENT SAYS THAT SHE HAD HER RIGHT KNEE REPLACED IN 2010, BUT HER PAIN PERSISTS. THE PATIENT STATES THAT SHE HAS DIFFICULTY DOING DAILY ACTIVITIES SUCH COOKING, CLEANING, AND GETTING GROCERIES DUE TO THIS PAIN. PATIENT DENIES UNEXPLAINABLE WEIGHT LOSS, FEVER, CHILLS, NEW CHANGES ON HER URINARY OR BOWEL CONTROL. FALL RISK SCREENING: SCREENING : NO FALLS IN THE PAST YEAR. CALLAHAN INVENTORY: QUESTIONNAIRE ASSESSEDTBD SCORE VALUE CALCULATED TBD CURRENT MEDICATIONS TAKING CHLORTHALIDONE 25 MG TABLET 1 TABLET IN THE MORNING WITH FOOD ORALLY ONCE A DAY TAKING CARVEDILOL 12.5 MG TABLET 1 TAB ORALLY BID TAKING IRBESARTAN 300 MG TABLET 1 TABLET ORALLY ONCE A DAY TAKING FLUTICASONE PROPIONATE 50 MCG/ACT SUSPENSION 1 SPRAY IN EACH NOSTRIL NASALLY ONCE A DAY, NOTES: HAS NOT STARTED YET TAKING BLOOD PRESSURE CUFF - MISCELLANEOUS DIRECTED DX I10 TAKING OMEPRAZOLE 20 MG CAPSULE DELAYED RELEASE 1 CAP ORALLY DAILY TAKING VITAMIN D3 2000 UNIT CAPSULE 1 CAPSULE ORALLY ONCE A DAY TAKING NORTRIPTYLINE HCL 25 MG CAPSULE 1 CAPSULE ORALLY ONCE A DAY TAKING PRAVASTATIN SODIUM 40 MG TABLET 1 TABLET ORALLY ONCE A DAY TAKING TYLENOL 325 MG TABLET 1 TABLET NEEDED ORALLY EVERY 4 HRS NOT-TAKING MELOXICAM 7.5 MG TABLET 1 TABLET ORALLY ONCE A DAY MEDICATION LIST REVIEWED AND RECONCILED WITH THE PATIENT PAST MEDICAL HISTORY HYPERTENSION HYPERLIPIDEMIA REFLUX VITAMIN D DEFICIENCY BRAIN MRI - SMALL VESSEL ISCHEMIC DISEASE, 07/2018 OSTEOARTHRITIS OF HANDS, KNEES, AND BACK; ON DISABILITY FOR CHRONIC BACK PAIN "SMALL" CVA IN 2018 - NO RESIDUAL SYMPTOMS HX SPINE COMPRESSION FX DESPITE NORMAL DEXA ALLERGIES N.K.D.A. SURGICAL HISTORY KNEE REPLACEMENT 2002 KNEE REPLACEMENT 2010 FAMILY HISTORY FATHER: 83 YRS, ARTHRITIS, HEART ATTACK, DIAGNOSED WITH HEART DISEASE MOTHER: 91 YRS, ARTHRITIS, HEART ATTACK, HEART DISEASE 8 BROTHER(S) , 1 SISTER(S) . 2 SON(S) , 8 DAUGHTER(S) - HEALTHY. SOCIAL HISTORY GENERAL: PAIN CLINIC PFS, CLERGY, PUBLIC HEALTH REFERRALS CLERGY REFERRAL NEEDED?NO WAS THE PROVIDER NOTIFIED OF ANY PERTINENT INFO?NO PFS REFERRAL NEEDED?NO PUBLIC HEALTH REFERRAL NEEDED?NO PATIENT: ____. HOSPITALIZATION/MAJOR DIAGNOSTIC PROCEDURE HYPERTENSION 07/25/2018 REVIEW OF SYSTEMS REVIEWED BY: PROVIDER: CADY ZAVALETA MD . CONSTITUTIONAL: ANY CHANGE IN YOUR MEDICAL CONDITION? NO . CHILLS NO . FEVER NO . INFECTION: DO YOU HAVE NEW INFECTIONS? NO . DO YOU HAVE HISTORY OF MRSA? NO . MUSCULOSKELETAL: ANY NEW PATTERNS OF PAIN OR NUMBNESS? NO . SYTEMIC LUPUS NO . GASTROENTEROLOGY: ANY NEW CHANGE IN BOWEL CONTROL? NO . BARRETTS ESOPHAGUS NO . CIRRHOSIS NO . HEPATITIS NO . LIVER FAILURE NO . ACID REFLUX YES, ON MEDICATION . UNEXPLAINED WEIGHT LOSS NO . GENITOURINARY: ANY NEW CHANGE IN BLADDER CONTROL? NO . IS THERE A CHANCE YOU COULD BE ? NO . HEMATOLOGY/LYMPH: DO YOU TAKE ANY BLOOD THINNERS? (FOR EXAMPLE- COUMADIN, PLAVIX, AGGRENOX, PLATEL, PRADAXA, OR XARELTO) NO . WHEN WAS YOUR LAST DOSE? DATE: TIME: . LOW PLATELET COUNT NO . SICKLE CELL DISEASE NO . VON WILLIEBRANDS NO . FACTOR V LEIDEN NO . THALLASEMIA NO . ANEMIA NO . EASY BRUISING NO . NEUROLOGY: HAVE YOU FALLEN IN THE PAST 12 MONTHS? YES . ANY NEW EXTREMITY NUMBNESS OR WEAKNESS? NO . HEAD INJURY NO . DEMENTIA NO . CEREBRAL PALSY NO . MULTIPLE SCLEROSIS NO . DIZZINESS NO . HEADACHE PT COMPLAINS OF HEADACHES A FEW TIMES A WEEK . STROKES NO . VERTIGO NO . CARDIOLOGY: DO YOU HAVE A PACEMAKER OR DEFIBRILLATOR? NO . ANGINA NO . HEART ATTACK NO . HEART SURGERY NO . CONGESTIVE HEART FAILURE/FLUID OVERLOAD NO . CHEST PAIN NO . HIGH BLOOD PRESSURE ON MEDICATION(S) . IRREGULAR HEART BEAT NO . RESPIRATORY: HAVE YOU BEEN SICK IN THE PAST WEEK? NO . FEVER NO . FLU LIKE SYMPTOMS? NO . CPAP NO . BYPAP NO . ASTHMA NO . EMPHYSEMA NO . CHRONIC LUNG DISEASES NO . SHORTNESS OF BREATH ON EXERTION NO . DO YOU USE ANY TYPE OF TOBACCO (SMOKE, SMOKELESS, CHEW)? NO . COUGH YES . SNORING NO . INTEGUMENTARY: DO YOU HAVE ANY RASHES OR OPEN SORES? NO . ALLERGIC/IMMUNO: ARE YOU ALLERGIC TO IV DYE? NO . ANY NEW ALLERGIES? NO . PSYCHIATRIC: DO YOU HAVE THOUGHTS OF HURTING YOURSELF OR SOMEONE ELSE? NO . ARE YOU ABUSED, NEGLECTED, OR IN AN UNSAFE ENVIRONMENT? NO . ENDOCRINOLOGY: ARE YOU DIABETIC? PRE-DIABETIC, DIET CONTROLLED . THYROID DISORDER NO . OTHER: DO YOU NEED ANY PRESCRIPTIONS? YES . IF YES, PLEASE LIST: PAIN MEDICINE . ANY NEW PROBLEMS WITH YOUR MEDICATIONS? NO . WHEN DID YOU LAST EAT? ____ . WHEN DID YOU LAST DRINK? ____ . WHAT DID YOU LAST DRINK? ____ . NAME OF PERSON DRIVING YOU HOME? ____ . DO YOU HAVE ANY OTHER QUESTIONS OR CONCERNS NO . VITAL SIGNS WT 253.4 LBS, HT 63 IN, BMI 44.88 INDEX, BP 159/86 MM HG, HR 75 /MIN, RR 18 /MIN, TEMP 98.5 F, OXYGEN SAT % 98%, NA INITIALS SC 12:30, REVIEWED BY: BV. EXAMINATION GENERAL EXAMINATION: PATIENT IS ALERT O X 3 AND COOPERATIVE. LUNGS CLEAR, TO AUSCULTATION. HEART: NO MURMURS OR GALLOPS; FACIAL CRANIAL NERVES ARE GROSSLY NORMAL. GOOD SYMMETRY OF FACIAL MUSCLE MOVEMENT. NORMAL VISUAL TURNER. ANTALGIC GAIT. TENDERNESS IN THE THORACIC AND LOW BACK AREAS. PRESENCE OF TRIGGER POINTS AND BANDS OF TISSUE WITH RESTRICTION OF MOVEMENT OF THE BACK. TENDERNESS OVER THE RIGHT KNEE. RIGHT LEG IS WEAKER AT EXTENSION AND FLEXION. ASSESSMENTS MYALGIA, OTHER SITE - M79.18 (PRIMARY) THORACIC SPINE PAIN - M54.6 PAIN IN RIGHT KNEE - M25.561 OTHER CHRONIC PAIN - G89.29 LOW BACK PAIN - M54.5 NEURALGIA OF RIGHT LOWER EXTREMITY - M79.2 TREATMENT MYALGIA, OTHER SITE CLINICAL NOTES: WE DISCUSSED SEVERAL ISSUES WITH MRS. DAI'S PAIN MANAGEMENT CASE. I WILL START THE PATIENT ON CYMBALTA 30MG WITH FOOD TO AID IN PAIN RELIEF. THE PATIENT WILL CONSIDER A TRIGGER POINT OR FACET BLOCK IN THE FUTURE, BUT WISHES TO TRY MEDICATION MANAGEMENT FOR NOW. I WOULD ALSO LIKE TO GET COPIES OF THE PATIENT'S IMAGING (MRI'S FROM PTS DOCTOR AND RADIOLOGY). THE PATIENT WILL FOLLOW UP IN 2 MONTHS. INSTRUCTIONS WERE GIVEN, QUESTIONS WERE ANSWERED, PATIENT REPORTS UNDERSTANDING AND AGREES WITH THE PLAN. I, JOYCE DRIVER, DOCUMENTED THE ABOVE INFORMATION ACTING A SCRIBE FOR DR. ZAVALETA. I HAVE REVIEWED THE ABOVE DOCUMENT, WRITTEN BY JOYCE NAVARROIBDylon AND I VERIFY THAT IT IS ACCURATE. DEAR DR. REYNOSO:THANK YOU FOR YOUR KIND REFERRAL OF MRS. DAI. IF YOU WANT TO DISCUSS HER CASE WITH ME PLEASE CALL ME AT THE PAIN CENTER AT [phone]. SINCERELY,CADY ZAVALETA, [facility] MEDICINE . OTHERS START CYMBALTA CAPSULE DELAYED RELEASE PARTICLES, 30 MG, 1 CAPSULE, ORALLY, ONCE A DAY, 30 DAY(S), 30, REFILLS 1 PREVENTIVE MEDICINE PAIN CLINIC TEACHING: MEDICATIONS PT GIVEN WRITTEN AND VERBAL EDUCATION ON STARTING CYMBALTA. PT VERBALIZES UNDERSTANDING OF ALL EDUCATION. GARRY RETANA 12/10/2018 2:03:16 PM > . PROCEDURE CODES FA211 ESTABILISHED PATIENT [facility] FACILITY CHARGE G8427 CURRENT MEDS W/DOSAGES DOCUMENTED G8730 PAIN ASSESS POS TOOL F/U PLAN DOC DISPOSITION & COMMUNICATION FOLLOW UP 2 MONTHS (REASON: BACK & RIGHT KNEE) ELECTRONICALLY SIGNED BY CADY ZAVALETA MD, MD ON 12/19/2018 AT 09:48 AM EDT DISCLAIMER : THIS IS A VISIT SUMMARY EXTRACTED FROM THE [employer] CHART. IT IS NOT A COPY OF THE [employer] PROGRESS NOTE. MTDD
== END ==
LOC: M PAIN 12:00
PROVIDERS: ATTEND Anesthesiology
DX: M79.18 Myalgia, other site (principal); M54.6 Pain in thoracic spine; M25.561 Pain in right knee; M54.5 Low back pain; G89.29 Other chronic pain; M79.2 Neuralgia and neuritis, unspecified; I10 Essential (primary) hypertension; E78.5 Hyperlipidemia, unspecified; K21.9 Gastro-esophageal reflux disease without esophagitis; I73.9 Peripheral vascular disease, unspecified; M19.90 Unspecified osteoarthritis, unspecified site; R73.03 Prediabetes; E66.01 Morbid (severe) obesity due to excess calories; Z68.41 Body mass index [BMI] 40.0-44.9, adult; Z79.899 Other long term (current) drug therapy; Z96.659 Presence of unspecified artificial knee joint

== ENCOUNTER → 2019-02-18 | Outpatient (CLI) | payer OTHER ==
[~2019-02-18] MED LIST changes: -OMEP20CA3 PO; +OMEP20CA4 PO
--- NOTE | 2019-02-22 01:29 | ECWPNPC ---
PATIENT NAME: JOANNE DAI : 1945 GENDER: FEMALE VISIT DATE: 02/18/2019 DISCHARGE DATE: 02/18/19 1429 VISIT LOCKED DATE TIME: PHYSICIAN: BRIAN BAKER RESOURCE: BRIAN BAKER REASON FOR APPOINTMENT 1. BACK & RIGHT KNEE HISTORY OF PRESENT ILLNESS HISTORY OF PRESENT ILLNESS: PAIN THE PATIENT DESCRIBES THE PAIN... 73 YEAR OLD FEMALE IN FOR CHRONIC PAIN FOLLOW UP. SHE RATES HER PAIN AT A 8/10 AND DESCRIBES IT ACHING AND SHARP. SHE STOPPED HER CYMBALTA IT WAS GIVING HER HEADACHES. FALL RISK SCREENING: SCREENING :NO FALLS REPORTED IN THE LAST YEAR CURRENT MEDICATIONS TAKING BLOOD PRESSURE CUFF - MISCELLANEOUS DIRECTED DX I10 TAKING VITAMIN D3 2000 UNIT CAPSULE 1 CAPSULE ORALLY ONCE A DAY TAKING TYLENOL 325 MG TABLET 1 TABLET NEEDED ORALLY EVERY 4 HRS TAKING AMLODIPINE BESYLATE 5 MG TABLET 1 TABLET ORALLY ONCE A DAY TAKING PRAVASTATIN SODIUM 40 MG TABLET 1 TABLET ORALLY ONCE A DAY TAKING IRBESARTAN 300 MG TABLET 1 TABLET ORALLY ONCE A DAY TAKING NORTRIPTYLINE HCL 25 MG CAPSULE 1 CAPSULE ORALLY ONCE A DAY TAKING CARVEDILOL 12.5 MG TABLET 1 TAB ORALLY BID TAKING CHLORTHALIDONE 25 MG TABLET 1 TABLET IN THE MORNING WITH FOOD ORALLY ONCE A DAY TAKING OMEPRAZOLE 20 MG CAPSULE DELAYED RELEASE 1 CAP ORALLY DAILY TAKING FLUTICASONE PROPIONATE 50 MCG/ACT SUSPENSION 1 SPRAY IN EACH NOSTRIL NASALLY ONCE A DAY IF NEEDED, NOTES: HAS NOT STARTED YET TAKING MELOXICAM 7.5 MG TABLET 1 TABLET ORALLY ONCE A DAY NOT-TAKING CYMBALTA 30 MG CAPSULE DELAYED RELEASE PARTICLES 1 CAPSULE ORALLY ONCE A DAY MEDICATION LIST REVIEWED AND RECONCILED WITH THE PATIENT PAST MEDICAL HISTORY HYPERTENSION HYPERLIPIDEMIA REFLUX VITAMIN D DEFICIENCY BRAIN MRI - SMALL VESSEL ISCHEMIC DISEASE, 07/2018 OSTEOARTHRITIS OF HANDS, KNEES, AND BACK; ON DISABILITY FOR CHRONIC BACK PAIN "SMALL" CVA IN 2018 - NO RESIDUAL SYMPTOMS HX SPINE COMPRESSION FX DESPITE NORMAL DEXA ALLERGIES N.K.D.A. SURGICAL HISTORY KNEE REPLACEMENT 2002 KNEE REPLACEMENT 2010 FAMILY HISTORY FATHER: 83 YRS, ARTHRITIS, HEART ATTACK, DIAGNOSED WITH HEART DISEASE MOTHER: 91 YRS, ARTHRITIS, HEART ATTACK, HEART DISEASE 8 BROTHER(S) , 1 SISTER(S) . 2 SON(S) , 8 DAUGHTER(S) - HEALTHY. SOCIAL HISTORY GENERAL: TOBACCO USE ARE YOU A:NONSMOKER HIV / HEP-C SCREENING HIV TEST OFFERED TO PATIENT:YES DATE OFFERED:08/02/2018 TEST ACCEPTED:NO REASON:PATIENT DECLINED BROCHURE PROVIDED TO PATIENTYES OTHERS AT HOME: CHILD. EDUCATION LEVEL OF EDUCATION:COLLEGE DIET: REGULAR. LANGUAGE LANGUAGES SPOKEN:PANAMANIAN DOMESTIC VIOLENCE STATUS: RECREATIONAL DRUG USE DRUG USE?NO EXERCISE: NO REGULAR EXERCISE. LEARNING BARRIERS / SPECIAL NEEDS BARRIERS TO LEARNING?NO HEARING IMPAIRED?NO VISION IMPAIRED?YES COGNITIVELY IMPAIRED?NO :CORRECTIVE LENSES READINESS TO LEARN?YES LEARNING PREFERENCES?NO LEARNING CAPABILITIES PRESENT?YES EMOTIONAL BARRIERS?NO SPECIAL DEVICES?YES :CANE, WALKER COMMUNITY RELATIONS REP NEEDED?NO LATEX QUESTIONNAIRE LATEX ALLERGY : HAVE YOU EVER DEVELOPED ANY TYPE OF REACTION AFTER HANDLING LATEX PRODUCTS SUCH RUBBER GLOVES, CONDOMS, DIAPHRAGMS, BALLOONS, SOCKS, OR UNDERWEAR?NO LATEX ALLERGY : HAVE YOU EVER DEVELOPED ANY TYPE OF REACTION DURING OR AFTER DENTAL APPOINTMENT, VAGINAL/RECTAL EXAMINATION, SURGICAL PROCEDURE, OR ANY OTHER EXPOSURE?NO DATE ASKED : 09/27/2018 LATEX RISK : HAVE YOU EVER HAD ANY DIFFICULTY BREATHING OR HIVES AFTER EATING OR HANDLING ANY FRUITS, OR VEGETABLES; SUCH KIWI, BANANAS, STONE FRUITS, OR CHESTNUTSNO LATEX RISK : DO YOU HAVE A PREVIOUS PERSONAL HISTORY OF MORE THAN NINE SURGERIES, SPINA BIFIDA, OR REPEATED CATHERIZATIONS? NO LATEX RISK : ARE YOU FREQUENTLY EXPOSED TO LATEX PRODUCTS IN YOUR OCCUPATION?NO CAFFEINE CAFFEINE USE?YES LESS THAN 1 CUP COFFEE PER DAY ADVANCE DIRECTIVE ADVANCE DIRECTIVE DISCUSSED WITH PATIENT:NO INFORMATION PROVIDED. HINDUISM [id number] RASTAFARI MARITAL STATUS: .. ALCOHOL SCREENING DID YOU HAVE A DRINK CONTAINING ALCOHOL IN THE PAST YEAR?NO POINTS0 INTERPRETATIONNEGATIVE OCCUPATION: RETIRED. SEXUAL HX HAD SEX IN THE LAST 12 MONTHS (VAGINAL, ORAL, OR ANAL)?NO HAVE YOU EVER HAD AN STD?NO HOSPITALIZATION/MAJOR DIAGNOSTIC PROCEDURE HYPERTENSION 07/25/2018 REVIEW OF SYSTEMS REVIEWED BY: PROVIDER: STEPHANIE LANE . CONSTITUTIONAL: ANY CHANGE IN YOUR MEDICAL CONDITION? NO . CHILLS NO . FEVER NO . INFECTION: DO YOU HAVE NEW INFECTIONS? NO . DO YOU HAVE HISTORY OF MRSA? NO . MUSCULOSKELETAL: ANY NEW PATTERNS OF PAIN OR NUMBNESS? YES - BACK PAIN WORSE WHEN WALKING . GASTROENTEROLOGY: ANY NEW CHANGE IN BOWEL CONTROL? NO . GENITOURINARY: ANY NEW CHANGE IN BLADDER CONTROL? NO . IS THERE A CHANCE YOU COULD BE ? NO . HEMATOLOGY/LYMPH: DO YOU TAKE ANY BLOOD THINNERS? (FOR EXAMPLE- COUMADIN, PLAVIX, AGGRENOX, PLATEL, PRADAXA, OR XARELTO) NO . WHEN WAS YOUR LAST DOSE? DATE: TIME: . NEUROLOGY: HAVE YOU FALLEN IN THE PAST 12 MONTHS? YES . ANY NEW EXTREMITY NUMBNESS OR WEAKNESS? NO . CARDIOLOGY: DO YOU HAVE A PACEMAKER OR DEFIBRILLATOR? NO . RESPIRATORY: HAVE YOU BEEN SICK IN THE PAST WEEK? NO . FEVER NO . FLU LIKE SYMPTOMS? NO . COUGH NO . INTEGUMENTARY: DO YOU HAVE ANY RASHES OR OPEN SORES? NO . ALLERGIC/IMMUNO: ARE YOU ALLERGIC TO IV DYE? NO . ANY NEW ALLERGIES? NO . PSYCHIATRIC: DO YOU HAVE THOUGHTS OF HURTING YOURSELF OR SOMEONE ELSE? NO . ARE YOU ABUSED, NEGLECTED, OR IN AN UNSAFE ENVIRONMENT? NO . ENDOCRINOLOGY: ARE YOU DIABETIC? NO . OTHER: DO YOU NEED ANY PRESCRIPTIONS? YES - PAIN MEDICATION . IF YES, PLEASE LIST: ____ . ANY NEW PROBLEMS WITH YOUR MEDICATIONS? YES - HEADACHE WITH CYMBALTA . WHEN DID YOU LAST EAT? ____ . WHEN DID YOU LAST DRINK? ____ . WHAT DID YOU LAST DRINK? ____ . NAME OF PERSON DRIVING YOU HOME? ____ . DO YOU HAVE ANY OTHER QUESTIONS OR CONCERNS NO . VITAL SIGNS WT 256.4 LBS, HT 63 IN, BMI 45.41 INDEX, BP 172/78 MM HG, HR 84 /MIN, RR 18 /MIN, TEMP 97.6 F, OXYGEN SAT % 97%, NA INITIALS AW 1346, REVIEWED BY: JG. EXAMINATION GENERAL EXAMINATION: GENERALNO ACUTE DISTRESS, WELL NOURISHED AND HYDRATED. PSYCHAPPROPRIATE MOOD AND AFFECT . LUNGS:CLEAR TO AUSCULTATION BILATERALLY, NO WHEEZES, RHONCHI, RALES. HEART:NO MURMURS, REGULAR RATE AND RHYTHM. ASSESSMENTS LUMBAGO WITH SCIATICA, LEFT SIDE - M54.42 (PRIMARY) PAIN IN RIGHT KNEE - M25.561 TREATMENT LUMBAGO WITH SCIATICA, LEFT SIDE STOP AMITRIPTYLINE HCL TABLET, 25 MG, 1 TABLET AT BEDTIME, ORALLY, ONCE A DAY, 30 DAY(S), 30 STOP CYMBALTA CAPSULE DELAYED RELEASE PARTICLES, 30 MG, 1 CAPSULE, ORALLY, ONCE A DAY CLINICAL NOTES: 73 YEAR OLD FEMALE IN FOR CHRONIC PAIN FOLLOW UP. GIVEN PRESENTING SYMPTOMS AND RESULTS OF PHYSICAL EXAMINATION RECOMMENDED INCREASING MELOXICAM TO 15 MG DAILY WITH FOLLOW UP IN 1 MONTH TO DETERMINE EFFICACY OF TREATMENT. PATIENT HAS EXPRESSED UNDERSTANDING OF AND WAS IN AGREEMENT WITH TREATMENT PLAN. GIVEN TIME TO ASK QUESTIONS AND EXPRESS CONCERNS. OTHERS INCREASE MELOXICAM TABLET, 15 MG, 1 TABLET, ORALLY, ONCE A DAY, 30 DAYS, 30 TABLET PROCEDURE CODES FA211 ESTABILISHED PATIENT [facility] CHARGE DISPOSITION & COMMUNICATION FOLLOW UP 4 WEEKS (REASON: ADDITION OF MEDICATION ) ELECTRONICALLY SIGNED BY ELROY CUNNINGHAM ON 02/21/2019 AT 09:01 AM EDT DISCLAIMER : THIS IS A VISIT SUMMARY EXTRACTED FROM THE [employer] CHART. IT IS NOT A COPY OF THE [employer] PROGRESS NOTE. ASHLEY
== END ==
LOC: M PAIN 13:00
PROVIDERS: ATTEND Family Medicine
DX: M54.42 Lumbago with sciatica, left side (principal); M25.561 Pain in right knee; I10 Essential (primary) hypertension; E78.5 Hyperlipidemia, unspecified; M19.041 Primary osteoarthritis, right hand; M19.042 Primary osteoarthritis, left hand; K21.9 Gastro-esophageal reflux disease without esophagitis; E55.9 Vitamin D deficiency, unspecified; Z86.73 Personal history of transient ischemic attack (TIA), and cerebral infarction without residual deficits; Z96.653 Presence of artificial knee joint, bilateral; Z79.899 Other long term (current) drug therapy; Z79.1 Long term (current) use of non-steroidal anti-inflammatories (NSAID)

== ENCOUNTER → 2019-03-24 | Outpatient (CLI) | payer OTHER ==
--- NOTE | 2019-03-25 23:29 | ECWPNPC ---
PATIENT NAME: JOANNE DAI : 1945 GENDER: FEMALE VISIT DATE: 03/24/2019 DISCHARGE DATE: 03/24/19 1503 VISIT LOCKED DATE TIME: PHYSICIAN: BRIAN BAKER RESOURCE: BRIAN BAKER REASON FOR APPOINTMENT 1. ADDITION OF MEDICATION HISTORY OF PRESENT ILLNESS HISTORY OF PRESENT ILLNESS: PAIN THE PATIENT DESCRIBES THE PAIN... 74 YEAR OLD FEMALE IN FOR CHRONIC PAIN FOLLOW UP. MELOXICAM WAS INCREASED AT LAST APPT AND SHE ADMITS THAT IT MAY HAVE HELPED SOME BUT NOT A LOT. SHE CONTINUES TO HAVE BACK PAIN THAT RADIATES DOWN THE SPINE. SHE RATES HER PAIN AT AN 8/10 CURRENTLY AND DESCRIBES IT ACHING, SHARP, AND SHOOTING. FALL RISK SCREENING: SCREENING :NO FALLS REPORTED IN THE LAST YEAR CURRENT MEDICATIONS TAKING BLOOD PRESSURE CUFF - MISCELLANEOUS DIRECTED DX I10 TAKING TYLENOL 325 MG TABLET 1 TABLET NEEDED ORALLY EVERY 4 HRS TAKING PRAVASTATIN SODIUM 40 MG TABLET 1 TABLET ORALLY ONCE A DAY TAKING NORTRIPTYLINE HCL 25 MG CAPSULE 1 CAPSULE ORALLY ONCE A DAY TAKING OMEPRAZOLE 20 MG CAPSULE DELAYED RELEASE 1 CAP ORALLY DAILY TAKING FLUTICASONE PROPIONATE 50 MCG/ACT SUSPENSION 1 SPRAY IN EACH NOSTRIL NASALLY ONCE A DAY IF NEEDED TAKING MELOXICAM 15 MG TABLET 1 TABLET ORALLY ONCE A DAY TAKING CARVEDILOL 12.5 MG TABLET 1 TAB ORALLY BID TAKING CHLORTHALIDONE 25 MG TABLET 1 TABLET IN THE MORNING WITH FOOD ORALLY ONCE A DAY TAKING AMLODIPINE BESYLATE 5 MG TABLET 1 TABLET ORALLY ONCE A DAY TAKING AMLODIPINE BESYLATE 2.5 MG TABLET 1 TABLET ORALLY ONCE A DAY TAKING IRBESARTAN 300 MG TABLET 1 TABLET ORALLY ONCE A DAY TAKING VITAMIN D3 2000 UNIT CAPSULE 1 CAPSULE ORALLY ONCE A DAY MEDICATION LIST REVIEWED AND RECONCILED WITH THE PATIENT PAST MEDICAL HISTORY HYPERTENSION HYPERLIPIDEMIA REFLUX VITAMIN D DEFICIENCY BRAIN MRI - SMALL VESSEL ISCHEMIC DISEASE, 07/2018 OSTEOARTHRITIS OF HANDS, KNEES, AND BACK; ON DISABILITY FOR CHRONIC BACK PAIN "SMALL" CVA IN 2018 - NO RESIDUAL SYMPTOMS HX SPINE COMPRESSION FX DESPITE NORMAL DEXA ALLERGIES N.K.D.A. SURGICAL HISTORY KNEE REPLACEMENT-LEFT 2002 KNEE REPLACEMENT-RIGHT 2010 FAMILY HISTORY FATHER: 83 YRS, ARTHRITIS, HEART ATTACK, DIAGNOSED WITH HEART DISEASE MOTHER: 91 YRS, ARTHRITIS, HEART ATTACK, HEART DISEASE 8 BROTHER(S) , 1 SISTER(S) . 2 SON(S) , 8 DAUGHTER(S) - HEALTHY. SOCIAL HISTORY GENERAL: TOBACCO USE ARE YOU A:NONSMOKER HIV / HEP-C SCREENING HIV TEST OFFERED TO PATIENT:YES DATE OFFERED:08/02/2018 TEST ACCEPTED:NO REASON:PATIENT DECLINED BROCHURE PROVIDED TO PATIENTYES OTHERS AT HOME: CHILD. EDUCATION LEVEL OF EDUCATION:COLLEGE DIET: REGULAR. LANGUAGE LANGUAGES SPOKEN:[place] DOMESTIC VIOLENCE STATUS: DO YOU FEEL SAFE IN YOUR ENVIRONMENT?YES RECREATIONAL DRUG USE DRUG USE?NO EXERCISE: NO REGULAR EXERCISE. LEARNING BARRIERS / SPECIAL NEEDS BARRIERS TO LEARNING?NO HEARING IMPAIRED?NO VISION IMPAIRED?YES :CORRECTIVE LENSES COGNITIVELY IMPAIRED?NO READINESS TO LEARN?YES LEARNING PREFERENCES?NO LEARNING CAPABILITIES PRESENT?YES EMOTIONAL BARRIERS?NO SPECIAL DEVICES?YES :CANE, WALKER EDGE BANDER HAND NEEDED?NO PAIN CLINIC PFS, CLERGY, PUBLIC HEALTH REFERRALS HAS THE PATIENT BEEN EDUCATED REGARDING HIS/HER PLAN OF CARE?YES HAS THE PATIENT BEEN EDUCATED REGARDING PAIN, THE RISK FOR PAIN, THE IMPORTANCE OF EFFECTIVE PAIN MANAGEMENT, AND THE PAIN ASSESSMENT PROCESS?YES LATEX QUESTIONNAIRE LATEX ALLERGY : HAVE YOU EVER DEVELOPED ANY TYPE OF REACTION AFTER HANDLING LATEX PRODUCTS SUCH RUBBER GLOVES, CONDOMS, DIAPHRAGMS, BALLOONS, SOCKS, OR UNDERWEAR?NO LATEX ALLERGY : HAVE YOU EVER DEVELOPED ANY TYPE OF REACTION DURING OR AFTER DENTAL APPOINTMENT, VAGINAL/RECTAL EXAMINATION, SURGICAL PROCEDURE, OR ANY OTHER EXPOSURE?NO LATEX RISK : HAVE YOU EVER HAD ANY DIFFICULTY BREATHING OR HIVES AFTER EATING OR HANDLING ANY FRUITS, OR VEGETABLES; SUCH KIWI, BANANAS, STONE FRUITS, OR CHESTNUTSNO LATEX RISK : DO YOU HAVE A PREVIOUS PERSONAL HISTORY OF MORE THAN NINE SURGERIES, SPINA BIFIDA, OR REPEATED CATHERIZATIONS? NO LATEX RISK : ARE YOU FREQUENTLY EXPOSED TO LATEX PRODUCTS IN YOUR OCCUPATION?NO DATE ASKED : 03/24/2019 CAFFEINE CAFFEINE USE?YES LESS THAN 1 CUP COFFEE PER DAY ADVANCE DIRECTIVE ADVANCE DIRECTIVE DISCUSSED WITH PATIENT:YES 03/24/19 PT DOES NOT HAVE ANY ADVANCED DIRECTIVES. SHE GIVEN INFORMATION ON HCP AND ASSISTANCE OFFERED IN COMPLETING FORM IF NEEDED. AD RASTAFARIAN [id number] [employer]AHAOISM MARITAL STATUS: .. ALCOHOL SCREENING DID YOU HAVE A DRINK CONTAINING ALCOHOL IN THE PAST YEAR?NO POINTS0 INTERPRETATIONNEGATIVE OCCUPATION: RETIRED. SEXUAL HX HAD SEX IN THE LAST 12 MONTHS (VAGINAL, ORAL, OR ANAL)?NO HAVE YOU EVER HAD AN STD?NO HOSPITALIZATION/MAJOR DIAGNOSTIC PROCEDURE HYPERTENSION 07/25/2018 SURGERIES REVIEW OF SYSTEMS REVIEWED BY: PROVIDER: STEPHANIE LANE . CONSTITUTIONAL: ANY CHANGE IN YOUR MEDICAL CONDITION? NO . CHILLS NO . FEVER NO . INFECTION: DO YOU HAVE NEW INFECTIONS? NO . DO YOU HAVE HISTORY OF MRSA? NO . MUSCULOSKELETAL: ANY NEW PATTERNS OF PAIN OR NUMBNESS? NO . GASTROENTEROLOGY: ANY NEW CHANGE IN BOWEL CONTROL? NO . GENITOURINARY: ANY NEW CHANGE IN BLADDER CONTROL? NO . IS THERE A CHANCE YOU COULD BE ? NO . HEMATOLOGY/LYMPH: DO YOU TAKE ANY BLOOD THINNERS? (FOR EXAMPLE- COUMADIN, PLAVIX, AGGRENOX, PLATEL, PRADAXA, OR XARELTO) NO . WHEN WAS YOUR LAST DOSE? DATE: TIME: . NEUROLOGY: HAVE YOU FALLEN IN THE PAST 12 MONTHS? YES, APPROX 6 TIMES. INCREASE IN PAIN AFTER BUT NO MAJOR INJURY . ANY NEW EXTREMITY NUMBNESS OR WEAKNESS? NO . CARDIOLOGY: DO YOU HAVE A PACEMAKER OR DEFIBRILLATOR? NO . RESPIRATORY: HAVE YOU BEEN SICK IN THE PAST WEEK? NO . FEVER NO . FLU LIKE SYMPTOMS? NO . COUGH NO . INTEGUMENTARY: DO YOU HAVE ANY RASHES OR OPEN SORES? NO . ALLERGIC/IMMUNO: ARE YOU ALLERGIC TO IV DYE? NO . ANY NEW ALLERGIES? NO . PSYCHIATRIC: DO YOU HAVE THOUGHTS OF HURTING YOURSELF OR SOMEONE ELSE? NO . ARE YOU ABUSED, NEGLECTED, OR IN AN UNSAFE ENVIRONMENT? NO . ENDOCRINOLOGY: ARE YOU DIABETIC? NO . OTHER: DO YOU NEED ANY PRESCRIPTIONS? NO . IF YES, PLEASE LIST: ____ . ANY NEW PROBLEMS WITH YOUR MEDICATIONS? NO . WHEN DID YOU LAST EAT? ____ . WHEN DID YOU LAST DRINK? ____ . WHAT DID YOU LAST DRINK? ____ . NAME OF PERSON DRIVING YOU HOME? ____ . DO YOU HAVE ANY OTHER QUESTIONS OR CONCERNS YES, THE INCREASE IN MELOXICAM HAS NOT BEEN HELPFUL. SHE HAS HAD TO USE HER WALKER MORE LATELY TO AMBULATE WITH. . VITAL SIGNS WT 260 LBS, HT 63 IN, BMI 46.05 INDEX, BP 144/64 MM HG, HR 81 /MIN, RR 18 /MIN, TEMP 97.0 F, OXYGEN SAT % 100%, SAFE IN ENV? (Y/N) Y, NA INITIALS AW 1403, REVIEWED BY: AD. EXAMINATION GENERAL EXAMINATION: GENERALNO ACUTE DISTRESS, WELL NOURISHED AND HYDRATED. PSYCHAPPROPRIATE MOOD AND AFFECT . LUNGS:CLEAR TO AUSCULTATION BILATERALLY, NO WHEEZES, RHONCHI, RALES. HEART:NO MURMURS, REGULAR RATE AND RHYTHM. ASSESSMENTS LUMBAGO WITH SCIATICA, LEFT SIDE - M54.42 (PRIMARY) SPONDYLOSIS OF THORACIC REGION WITHOUT MYELOPATHY OR RADICULOPATHY - M47.814 TREATMENT LUMBAGO WITH SCIATICA, LEFT SIDE START DICLOFENAC SODIUM TABLET DELAYED RELEASE, 50 MG, 1 TABLET WITH FOOD OR MILK, ORALLY, THREE TIMES A DAY, 30 DAY(S), 90 LAB: COMPREHENSIVE METABOLIC PROFILE (CMP) (ORDERED FOR 03/24/2019) [facility] MRI SPINE, L.S. WITHOUT [id number] [facility] MRI SPINE,THORACIC WITHOUT [id number] CLINICAL NOTES: 74 YEAR OLD FEMALE IN FOR CHRONIC PAIN FOLLOW UP. GIVEN PRESENTING SYMPTOMS AND RESULTS OF PHYSICAL EXAMINATION RECOMMENDED MRI'S FOR FURTHER EVALUATION AND STARTING DICLOFENAC. PATIENT HAS EXPRESSED UNDERSTANDING OF AND WAS IN AGREEMENT WITH TREATMENT PLAN. GIVEN TIME TO ASK QUESTIONS AND EXPRESS CONCERNS. OTHERS STOP MELOXICAM TABLET, 15 MG, 1 TABLET, ORALLY, ONCE A DAY PREVENTIVE MEDICINE PAIN CLINIC TEACHING: MEDICATIONS PRINTED INFORMATION ON DICLOFENAC GIVEN TO AND REVIEWED WITH PATIENT AND SHE VERBALIZED UNDERSTANDING. AD. PROCEDURE CODES FA211 ESTABILISHED PATIENT [facility] FACILITY CHARGE DISPOSITION & COMMUNICATION FOLLOW UP POST MRI (REASON: MRI) ELECTRONICALLY SIGNED BY ELROY CUNNINGHAM ON 03/25/2019 AT 09:02 AM EDT DISCLAIMER : THIS IS A VISIT SUMMARY EXTRACTED FROM THE [employer] CHART. IT IS NOT A COPY OF THE [employer] PROGRESS NOTE. MTDD
== END ==
LOC: M PAIN 13:45
PROVIDERS: ATTEND Family Medicine
DX: M54.42 Lumbago with sciatica, left side (principal); M47.814 Spondylosis without myelopathy or radiculopathy, thoracic region; G89.29 Other chronic pain; I10 Essential (primary) hypertension; E78.5 Hyperlipidemia, unspecified; K21.9 Gastro-esophageal reflux disease without esophagitis; E55.9 Vitamin D deficiency, unspecified; Z96.653 Presence of artificial knee joint, bilateral; E66.01 Morbid (severe) obesity due to excess calories; Z68.42 Body mass index [BMI] 45.0-49.9, adult; Z79.899 Other long term (current) drug therapy

== ENCOUNTER → 2019-04-19 | Outpatient (REF) | payer OTHER ==
[2019-04-19 13:16] LABS: APPEARANCE, URINE CLEAR (CLEAR); BACTERIA, URINE AUTO 1+ (NEGATIVE); BILIRUBIN, URINE AUTO NEGATIVE (NEGATIVE); BLOOD, URINE BLOOD NEGATIVE (NEGATIVE); COLOR, URINE STRAW (YELLOW); GLUCOSE, URINE (UA) AUTO NEGATIVE (NEGATIVE); KETONE, URINE AUTO NEGATIVE (NEGATIVE); LEUKOCYTE ESTERASE, URINE AUTO NEGATIVE (NEGATIVE); NITRITE, URINE AUTO NEGATIVE (NEGATIVE); PROTEIN, URINE AUTO NEGATIVE (NEGATIVE); RBC, URINE AUTO 3 /HPF (0-3); SPECIFIC GRAVITY URINE AUTO 1.004 (1.002-1.035); SQUAMOUS EPITHELIAL CELL UR AU 0 /HPF (0-6); UROBILINOGEN, URINE AUTO 0.2 mg/dL (0.0-2.0); WBC, URINE AUTO 1 /HPF (0-3)
[2019-04-19 13:41] LABS: CALCIUM LEVEL 9.2 MG/DL (8.8-10.2); CREATININE FOR GFR 1.22 MG/DL (0.55-1.30); GLOMERULAR FILTRATION RATE 55.4 (>39); THYROID STIMULATING HORMONE 3.46 uIU/ML (0.358-3.740)
[2019-04-19 13:44] LABS: CREATININE, URINE 25.9 MG/DL; MALB URINE SIEMENS < 5.0 MG/L; MAU/CREAT RATIO 19.3 MCG/MG (0.0-30.0)
== END ==
LOC: M SFHCPLAZ 09:58
PROVIDERS: ATTEND Family Medicine
DX: I10 Essential (primary) hypertension (principal)
CPT/HCPCS: 36415; 80048; 81001; 82043; 84443; G0463

== ENCOUNTER → 2019-08-04 | Outpatient (CLI) | payer OTHER ==
[~2019-08-04] MED LIST changes: +OMEP1CAP73 PO; -OMEP20CA4 PO; -OMEP40CA2 PO; +OMEP40CA97 PO
[2019-08-04 17:15] LABS: BLOOD UREA NITROGEN 15 MG/DL (7-18); CALCIUM LEVEL 9.1 MG/DL (8.8-10.2); CARBON DIOXIDE LEVEL 27 MEQ/L (21-32); CHLORIDE LEVEL 103 MEQ/L (98-107); CHOLESTEROL LEVEL 217 MG/DL (<200); CHOLESTEROL RISK RATIO 2.494 (<5); CREATININE FOR GFR 1.06 MG/DL (0.55-1.30); GLOMERULAR FILTRATION RATE > 60.0 (>39); GLUCOSE, FASTING 97 MG/DL (70-100); HDL CHOLESTEROL 87 MG/DL (>40); LDL CHOLESTEROL 103 MG/DL (<100); NON-HDL-C 130 MG/DL; POTASSIUM SERUM 4.1 MEQ/L (3.5-5.1); SODIUM LEVEL 138 MEQ/L (136-145); TRIGLYCERIDES LEVEL 137 MG/DL (<150)
== END ==
LOC: M PLALAB 12:42
PROVIDERS: ATTEND Family Medicine
DX: E78.2 Mixed hyperlipidemia (principal); I10 Essential (primary) hypertension